=== PATIENT | male | born 2000 | race Caucasian/White ===

== ENCOUNTER 2021-09-20 20:31 | Emergency (ER) | payer OTHER ==
[~2021-09-20] VITALS: Ht 185.4 cm; Wt 111.1 kg
[2021-09-20 21:21] LABS: ABSOLUTE NEUTROPHILS 6.1 thou/uL (1.4-8.2); BASOPHILS 0.4 % (0.0-2.0); EOSINOPHILS 1.2 % (0.0-3.0); HEMATOCRIT 47.2 % (42.0-52.0); HEMOGLOBIN 16.4 gm/dL (14.0-18.0); LYMPHOCYTES 29.5 % (24.0-44.0); MCH 30.9 pg (26.0-34.0); MCHC 34.8 g/dL (28.0-37.0); MCV 88.7 fL (80.0-100.0); MONOCYTES 11.8 % (1.0-8.0); PLATELET COUNT 236 thou/uL (150-400); POLYS 57.1 % (36.0-66.0); RBC 5.31 mil/uL (4.50-6.00); RDW 12.4 % (10.5-14.5); WBC 10.7 thou/uL (4.0-11.0)
[2021-09-20 21:26] LABS: CALCIUM 8.9 mg/dL (8.5-10.1); CREATININE 1.1 mg/dL (0.7-1.3)
[2021-09-20 21:40] LABS: ALBUMIN 3.9 g/dL (3.4-5.0); MAGNESIUM 1.9 mg/dL (1.8-2.4); TOTAL BILIRUBIN 0.7 mg/dL (0.2-1.0); TOTAL PROTEIN 7.3 g/dL (6.4-8.2)
[2021-09-20 21:47] LABS: AMP/METHAMP Negative (Negative); BARBITURATES Negative (Negative); BENZODIAZEPINES Negative (Negative); COCAINE Negative (Negative); METHADONE Negative (Negative); OPIATES Negative (Negative); PCP Negative (Negative)
[2021-09-20] MEDS ORDERED: BENTYL 10 MG CA10 M1 PO (23:04)
[2021-09-20] MEDS ORDERED: HYDROXYZINE PAM25 M1 PO (23:04)
[2021-09-20] MEDS ORDERED: METHOCARBAMOL500 M2 PO (23:04)
[2021-09-21 00:13] VITALS: BP 115/46
--- NOTE | 2021-09-21 09:54 | EKG ---
[address] [address] ELECTROCARDIOGRAM REPORT Name: ANDREAS FARIASIN [facility] [id number] Admission: 09/20/21 Attend Phys: Discharge: 09/21/21 Date of : 01 Report #: [id number] [facility] ED Test Date: 2021-09-20 Test Time: 20:48:25 Pat Name: ANDREAS FARIAS Department: Room: Gender: [employer]: : 2000 Requested By: Lois Doll Order Number: [id number] MD: Nader Taveras Measurements Intervals [place] Rate: 74 P: 67 CA: 116 QRS: 79 QRSD: 98 T: 42 QT: 360 QTc: 400 Interpretive Statements Sinus rhythm Borderline short CA interval No previous ECG available for comparison Electronically Signed On 09-21-2021 9:54:18 CERTIFIED MEDICAL TRANSCRIPTIONIST by Nader Taveras [email or web address] <ELECTRONICALLY SIGNED> By: Nader Taveras MD 09/21/21 0954 2048 2048 Nader [email or web address] MD /EPI
== END 2021-09-21 00:14 | disposition home or self-care (01) ==
LOC: ER 20:31
PROVIDERS: Nurse Practitioner Family
DX: F41.9 Anxiety disorder, unspecified (principal); E07.89 Other specified disorders of thyroid